=== PATIENT | male | born 1995 ===

== ENCOUNTER 2020-04-26 17:59 | Emergency (ER) | payer BC ==
[2020-04-27 01:41] LABS: SARS-CoV-2 PCR by NAA Not Detected (NotDetected)
== END 2020-04-26 19:16 | disposition home or self-care (01) ==
LOC: ERS 17:59
DX: B34.9 Viral infection, unspecified (principal); Z20.822 Contact with and (suspected) exposure to COVID-19
CPT/HCPCS: 87635; 99284; U0003; U0005